=== PATIENT | male | born 1995 | race Caucasian/White ===

== ENCOUNTER 2017-04-26 13:37 | Outpatient (CLI) | payer OTHER | END 2017-04-26 13:40 | LOC: LAB 13:37 | PROVIDERS: ATTEND Physician Assistant | DX: R36.9 Urethral discharge, unspecified (principal) | CPT/HCPCS: 87086; 87491; 87591 ==

== ENCOUNTER 2018-01-12 12:12 | Outpatient (CLI) | payer OTHER | END 2018-01-12 12:13 | LOC: LABRHC 12:12 | PROVIDERS: ATTEND Physician Assistant | DX: J02.9 Acute pharyngitis, unspecified (principal) | CPT/HCPCS: 87070 ==

== ENCOUNTER 2019-05-01 10:09 | Outpatient (CLI) | payer OTHER ==
[2019-05-01 10:22] LABS: BASOPHILS % 0.7 % (0.0-1.5)
[2019-05-01 10:23] LABS: NEUTROPHILS # 4.7 # k/uL (1.4-7.7)
--- NOTE | 2019-05-01 11:34 | Diagnostic Imaging Report ---
PATIENT MR#: [id number] PATIENT PATIENT NAME: LM BUTLER DATE OF : 1995 REFERRING PHYSICIAN: Adriana Rutledge EXAM DATE: 05/01/2019 ACCESSION NUMBER: [id number] EXAM DESCRIPTION: US U OR L EXT VEINS UNILAT *Ultrasound left lower extremity venous duplex Doppler Indication: REASON: LUMP UNDER SKIN OF LLE HISTORY: LEG TENDERNESS X5 YEARS, LUMP IN CALF, ?SWELLING BEHIND THE KNEE LEFT LOWER LEG Note time : 05/01/2019 11:25:27 AM User : Alicia Haywood REASON: LUMP UNDER SKIN OF LLE HISTORY: LEG TENDERNESS X5 YEARS, LUMP IN CALF, ?SWELLING BEHI ND THE KNEE LEFT LEG NO EVIDENCE OF DVT AREA OF INTREST FOR CALF LUMP AND BEHIND THE KNEE SWELLING IMAGED Hx) Findings: Ultrasonographic examination with spectral analysis demonstrates the left common femoral vein, superf icial femoral vein, popliteal and peroneal vein to be normal in color-flow, compressibility, Doppler wave form and augmen tation. Normal color-flow to the left posterior tibial vein is demonstrated. There is no evidence of deep venous thr ombosis Impression: No evidence of deep venous thrombosis. Read by: Dr. Alfa Gonzalez Transcribed by: Transcribed Date: Electronically signed by: Dr. Alfa Gonzalez Date signed: 05/01/2019 11:33:31 AM
== END 2019-05-01 10:14 | disposition home or self-care (01) ==
LOC: LAB 10:09
PROVIDERS: ATTEND Nurse Practitioner Family
DX: R23.8 Other skin changes (principal); R22.42 Localized swelling, mass and lump, left lower limb
CPT/HCPCS: 36415; 85025; 93971